=== PATIENT | male | born 1965 | race Two or more races ===

== ENCOUNTER 2024-12-20 17:15 | Emergency (ER) | payer OTHER ==
[~2024-12-20] VITALS: Ht 170.2 cm; Wt 72.7 kg
--- NOTE | 2024-12-20 18:10 | ED.PDOC ---
Raul. trauma (HPI) HPI Comments 59 y.o male with PMHx of HTN and CVA (w/ left sided weakness), presents to the ED via EMS s/p fall today. Patient ambulates with wheelchair due to weakness side, states he was going down a rail when his wheelchair tipped over a bump and caused him to fall onto his left side. Patient reports hitting his head against the wall and fell right onto his left shoulder causing pain radiating to his neck. PAtinet denies any LOC. Chief Complaint: Fall Injury Time Seen by MD: 17:40 Reviewed notes: Nurses Notes, Medications, Allergies Allergies: Coded Allergies: NO KNOWN ALLERGIES (Unverified , 12/20/24) Information Source: Patient Mode of Arrival: EMS Severity: Moderate Timing: Hours Duration: Since onset Location: Neck, (L) Shoulder Location of laceration: None Mechanism: Fall Associated signs and symtoms: Other Past Medical History PAST MEDICAL HISTORY: CVA (left sided weakness ), HTN Surgical History: Denies all surgeries Family History Family History: Reviewed,noncontributory to illness Social History Smoker: Non-Smoker Alcohol: Denies ETOH Use Drugs: Denies Drug Use Lives In: Home Constitutional: denies: chills, diaphoresis, fatigue, fever, malaise, sweats, weakness, others EENTM: denies: blurred vision, double vision, ear bleeding, ear discharge, ear drainage, ear pain, ear ringing, eye pain, eye redness, hearing loss, mouth pain, mouth swelling, nasal discharge, nose bleeding, nose congestion, nose pain, photophobia, tearing, throat pain, throat swelling, voice changes, others Respiratory: denies: cough, hemoptysis, orthopnea, SOB at rest, shortness of breath, SOB with excertion, stridor, wheezing, others Cardiovascular: denies: chest pain, dizzy spells, diaphoresis, Dyspnea on exertion, edema, irregular heart beat, left arm pain, lightheadedness, palpitations, PND, syncope, others Gastrointestinal: denies: abdomen distended, abdominal pain, blood streaked bowels, constipated, diarrhea, dysphagia, difficulty swallowing, hematemesis, melena, nausea, poor appetite, poor fluid intake, rectal bleeding, rectal pain, vomiting, others Genitourinary: denies: burning, dysuria, flank pain, frequency, hematuria, incontinence, penile discharge, penile sore, pain, testicle pain, testicle swelling, urgency, others Neurological: denies: dizziness, fainting, headache, left sided numbness, left sided weakness, numbness, paresthesia, pre-existing deficit, right sided numbness, right sided weakness, seizure, speech problems, tingling, tremors, weakness, others Musculoskeletal: reports: neck pain, others (left shoulder pain ); denies: back pain, gout, joint pain, joint swelling, muscle pain, muscle stiffness Integumetry: denies: bruises, change in color, change in hair/nails, dryness, laceration, lesions, lumps, rash, wounds, others Allergic/Immunocompromised: denies: Difficulty Healing, Frequent Infections, Hives, Itching, others Hematologic/Lymphatic: denies: anemia, blood clots, easy bleeding, easy bruising, swollen glands, others Endocrine: denies: excessive hunger, excessive sweating, excessive thirst, excessive urination, flushing, intolerance to cold, intolerance to heat, u nexplained weight gain, unexplained weight loss, others Psychiatric: denies: anxiety, bipolar disorder, depression, hopeless, panic disorder, schizophrenia, sleepless, suicidal, others All Other Systems: Reviewed and Negative Physical Exam General Appearance: No Apparent Distress, Normal HEENT: Normal ENT Inspection, Pharynx Normal, TMs Normal Neck: Full Range of Motion, Non-Tender, Normal, Normal Inspection Respiratory: Chest Non-Tender, Lungs Clear, No Accessory Muscle Use, No Respiratory Distress, Normal Breath Sounds Cardiovascular: No Edema, No JVD, No Murmur, No Gallop, Normal Peripheral P ulses, Regular Rate/Rhythm Breast Exam: Deferred Gastrointestinal: No Organomegaly, Non Tender, No Pulsatile Mass, Normal Bowel Sounds, Soft Genitalia: Deferred Pelvic: Deferred Rectal: Deferred Extremities: No calf tenderness, Normal capillary refill, Normal inspection, Normal range of motion, Non-tender, No pedal edema Musculoskeletal : Location: Left Extremity Location: Other (neck ) Apperance: Tenderness: Mild Neurologic: Alert, steel manager II-XII nml as Tested, No Motor Deficits, Normal Affect, Normal Mood, No Sensory Deficits Cerebellar Function: Normal Reflexes: Normal Skin: Dry, Normal Color, Warm Lymphatic: No Adenopathy Was a procedure done? Was a procedure done?: No Differential Diagnosis Multiple Trauma: Closed Head Injury, Fractures, Abrasions, Contusion, Other (sprain, strain) X-Ray, Labs, Meds, VS Vital Signs Date Time Temp Pulse Resp B/P (MAP) Pulse Ox O2 Delivery O2 Flow Rate FiO2 12/20/24 20:12 98.6 92 12 122/105 (111) 97 98.6 12/20/24 17:18 98.3 110 16 138/84 97 98.3 X-Ray, Labs, Meds, VS Comment Imaging was reviewed by this provider, there is no obvious pathological or acute disease process. Pending radiology review Labs were reviewed by this provider, no abnormalities Vital signs reviewed by this provider, clinically stable Time of 1ST Reevaluation: 18:05 Reevaluation 1ST: Unchanged Patient Education/Counseling: Diagnosis, Treatment, Prognosis, Need For Follow Up (Follow-up with PCP in the next 2-4 days. Return to the emergency department in the next 24-48 hours if symptoms worsen.) Family Education/Counseling: No Family Present Departure 1 Departure Time of Disposition: 21:48 Impression: Primary Impression: Contusion of left shoulder Qualified Codes: S40.012A - Contusion of left shoulder, initial encounter Additional Impression: Contusion of left hip Qualified Codes: S70.02XA - Contusion of left hip, initial encounter Disposition: 01 HOME / SELF CARE / HOMELESS Condition: Fair Discharged With: Self Critical Care Note Critical Care Time?: No Stability Stability form required: No I personally scribed for LAURA ARCOS ([facility]) on 12/20/24 at 18:10. Electronically submitted by Scarlett Miranda ([facility]). LAURA ARCOS Dec 20, 2024 18:10
--- NOTE | 2024-12-20 21:16 | DVH ---
CLINICAL INDICATION: fall TECHNIQUE: 3 radiographic views of the cervical spine were obtained. Comparison: None FINDINGS/IMPRESSION: Bony alignment appears normal. There appears to be bony spondylosis and degenerative disc changes C5- 6. There is no subluxation. Prevertebral soft tissues appear normal. There is a catheter traversing the soft tissues of the right side of the cervical area most likely fr om a ventriculoperitoneal shunt tube. HS:Y
--- NOTE | 2024-12-20 21:25 | DVH ---
CLINICAL INDICATION: fall TECHNIQUE: 2 radiographic views of the left shoulder were obtained. Comparison: None FINDINGS/IMPRESSION: Left clavicle appears intact. The acromioclavicular joint appears intact and normal alignment. There is no dislocation of the left humerus. Scapula appears normal on this study clinical concern recommend CT scan. HS:Y
--- NOTE | 2024-12-20 21:41 | DVH ---
CLINICAL INDICATION: fall TECHNIQUE: 4 radiographic views of the evaluation difficult to to poor patient positioning. Comparison: None FINDINGS/IMPRESSION: If patient able to tolerate, and positioning could be possible recommend CT pelvis for further evalua tion. HS:Y
[2024-12-21 00:05] VITALS: BP 140/91; PULSE 104; RESP 12; TEMP 98.2; O2SAT 97
== END 2024-12-21 00:16 | disposition home or self-care (01) ==
LOC: ER 17:15 → EDBD 17:15 → ER 12-21 00:16
DX: S40.012A Contusion of left shoulder, initial encounter (principal); S70.02XA Contusion of left hip, initial encounter; I10 Essential (primary) hypertension; I69.354 Hemiplegia and hemiparesis following cerebral infarction affecting left non-dominant side; Z79.899 Other long term (current) drug therapy; W22.01XA Walked into wall, initial encounter; Y93.89 Activity, other specified; Y92.89 Other specified places as the place of occurrence of the external cause; Y99.8 Other external cause status
CPT/HCPCS: 72040; 73030; 73502; 82947